=== PATIENT | female | born 1955 | race Caucasian/White ===

== ENCOUNTER 2017-10-07 17:51 | Observation (INO) | payer OTHER ==
[~2017-10-07] VITALS: Ht 167.6 cm; Wt 90.0 kg
[2017-10-07 17:57] VITALS: BP_SYST 110; BP_SYST 123; BP_DIAS 62; BP_DIAS 67; PULSE 88; PULSE 92; RESP 18; TEMP 97.8; O2SAT 100
[2017-10-07] MEDS ORDERED: SODIUM CHLORIDE 0.9% FLUSH 10 ML FLUSH IVF PRN (18:45)
--- NOTE | 2017-10-07 18:52 | RADRPT ---
EXAM DATE: 10/07/2017 6:50 PM EDT AGE/SEX: 62 years / Female INDICATIONS: Short of breath. CLINICAL DATA: This is the patient's initial encounter. Patient reports that signs and symptoms have been present for 1 day and indicates a pain score of 0/10. MEDICAL/SURGICAL HISTORY: None. None. COMPARISON: No prior exams available for comparison. FINDINGS: A single AP view of the chest demonstrates the lungs to be symmetrically aerated without evidence of mass, infiltrate or effusion. The cardiomediastinal contours are unremarkable. Osseous structures a re intact. CONCLUSION: 1. No acute cardiopulmonary disease. Electronically signed by: Juanjo Mak MD 10/07/2017 6:51 PM EDT
--- NOTE | 2017-10-07 18:53 | PD ---
HPI Chief Complaint: Respiratory Symptoms Time Seen by Provider: 18:22 Travel History International Travel<30 days: No Contact w/Intl Traveler<30days: No Traveled to known affect area: No History of Present Illness HPI Patient is a 62-year-old female presenting to the emergency department for evaluation of shortness of breath. Patient states it started last year in June 2016. She has had a total of 3 heart catheterizations the most recent being last Friday. Patient states that she has no tolerance for any activity. She had a negative pulmonary function test a few months ago. Patient thought that her symptoms may be due to being on Plavix however she was switched to Brilinta 2 weeks ago and she continues to have the symptoms. Patient's past medical history includes seizure disorder, coronary artery disease, hypertension , type 2 diabetes, hyperlipidemia, hormone replacement, depression. 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 She was seen at [facility] last week where she had the workup performed. Her significant other suggested that they come to [place] because they have not been able to get the answers they were looking for. PFSH Past Medical History Depression: Yes High Cholesterol: Yes Chest Pain: Yes Coronary Artery Disease: Yes Diabetes: Yes Medical other: Yes (Hormone replacement) Seizures: Yes Social History Alcohol Use: No Tobacco Use: No Substance Use: No Allergies-Medications (Allergen,Severity, Reaction): Coded Allergies: No Known Allergies (Unverified , 10/07/17) Review of Systems Except as stated in HPI: all other systems reviewed are Neg General / Constitutional: No: Fever HENT: No: Headaches Cardiovascular: Positive: Chest Pain or Discomfort (Occasionally), Dyspnea on exertion Respiratory: Positive: Shortness of Breath Gastrointestinal: No: Nausea, Abdominal Pain Musculoskeletal: No: Myalgias Neurologic: No: Weakness, Dizziness, Syncope Physical Exam Narrative GENERAL: Well-developed, well-nourished, alert female. Presenting in no acute distress. SKIN: Warm and dry. HEAD: Atraumatic. Normocephalic. EYES: Pupils equal and round. No scleral icterus. No injection or drainage. ENT: No nasal bleeding or discharge. Mucous membranes pink and moist. NECK: Trachea midline. No JVD. CARDIOVASCULAR: Regular rate and rhythm. RESPIRATORY: No accessory muscle use. Clear to auscultation. Breath sounds equal bilaterally. GASTROINTESTINAL: Abdomen soft, non-tender, nondistended. Hepatic and splenic margins not palpable. MUSCULOSKELETAL: Extremities without clubbing, cyanosis, or edema. No obvious deformities. NEUROLOGICAL: Awake and alert. No obvious cranial nerve deficits. Motor grossly within normal limits. Five out of 5 muscle strength in the arms and legs. Normal speech. PSYCHIATRIC: Appropriate mood and affect; insight and judgment normal. Data Data Last Documented VS Vital Signs Date Time Temp Pulse Resp B/P (MAP) Pulse Ox O2 Delivery O2 Flow Rate FiO2 10/07/17 21:26 98 10/07/17 19:53 Room Air 10/07/17 19:53 75 18 133/79 (97) 10/07/17 17:57 97.8 Orders Orders Electrocardiogram (10/07/17 18:04) Comprehensive Metabolic Panel (10/07/17 18:37) B-Type Natriuretic Peptide (10/07/17 18:37) Act Partial Throm Time (Ptt) (10/07/17 18:37) Prothrombin Time / Inr (Pt) (10/07/17 18:37) Magnesium (Mg) (10/07/17 18:37) Ckmb (Isoenzyme) Profile (10/07/17 18:37) Troponin I (10/07/17 18:37) Iv Access Insert/Monitor (10/07/17 18:37) Ecg Monitoring (10/07/17 18:37) Oximetry (10/07/17 18:37) Oxygen Administration (10/07/17 18:37) Chest, Single Ap (10/07/17 18:37) Sodium Chloride 0.9% Flush (Ns Flush) (10/07/17 18:45) Complete Blood Count With Diff (10/07/17 18:37) Activity Bed Rest With Brp (10/07/17 21:23) Vital Signs (Adult) Q4H (10/07/17 21:23) Cardiac Rhythm .As Directed (10/07/17:23) Notify Dr: Other .PRN (10/07/17 21:23) Notify DrIrvin Parameters (10/07/17 21:23) Resp Oxygen Nasal Cannula (10/07/17 ) Diet Npo (10/08/17 Breakfast) Ckmb (Isoenzyme) Profile (10/07/17 21:23) Ckmb (Isoenzyme) Profile (10/08/17 00:23) Troponin I (10/07/17 21:23) Troponin I (10/08/17 00:23) Electrocardiogram (10/07/17 21:23) Electrocardiogram (10/08/17 00:23) ^ Obtain (10/07/17:23) Sodium Chloride 0.9% Flush (Ns Flush) (10/07/17 21:30) Sodium Chloride 0.9% Flush (Ns Flush) (10/08/17 09:00) Acetaminophen (Tylenol) (10/07/17 21:30) Pantoprazole (Protonix) (10/08/17 09:00) Nitroglycerin Sl (Nitrostat Sl) (10/07/17 21:30) Temazepam (Restoril) (10/07/17 21:30) Oncology Specialist / Telemetry [id number].[id number] (10/07/17 21:23) Admit Order (Ed Use Only) (10/07/17 21:23) Labs Laboratory Tests Test 10/07/17 20:05 White Blood Count 14.4 TH/MM3 Red Blood Count 3.47 MIL/MM3 Hemoglobin 10.7 GM/DL Hematocrit 32.1 % Mean Corpuscular Volume 92.3 FL Mean Corpuscular Hemoglobin 30.9 PG Mean Corpuscular Hemoglobin Concent 33.5 % Red Cell Distribution Width 13.4 % Platelet Count 327 TH/MM3 Mean Platelet Volume 8.0 FL Neutrophils (%) (Auto) 81.6 % Lymphocytes (%) (Auto) 10.5 % Monocytes (%) (Auto) 6.4 % Eosinophils (%) (Auto) 1.1 % Basophils (%) (Auto) 0.4 % Neutrophils # (Auto) 11.8 TH/MM3 Lymphocytes # (Auto) 1.5 TH/MM3 Monocytes # (Auto) 0.9 TH/MM3 Eosinophils # (Auto) 0.2 TH/MM3 Basophils # (Auto) 0.1 TH/MM3 CBC Comment AUTO DIFF Differential Total Cells Counted 100 Neutrophils % (Manual) 80 % Band Neutrophils % 3 % Lymphocytes % 8 % Monocytes % 4 % Eosinophils % 3 % Neutrophils # (Manual) 12.2 TH/MM3 Metamyelocytes 1 % Promyelocytes 1 % Differential Comment FINAL DIFF MANUAL Platelet Estimate NORMAL Platelet Morphology Comment NORMAL Prothrombin Time 10.1 SEC Prothromb Time International Ratio 1.0 RATIO Activated Partial Thromboplast Time 25.7 SEC Blood Urea Nitrogen 20 MG/DL Creatinine 1.10 MG/DL Random Glucose 142 MG/DL Total Protein 7.6 GM/DL Albumin 3.8 GM/DL Calcium Level 9.1 MG/DL Magnesium Level 1.8 MG/DL Alkaline Phosphatase 57 U/L Aspartate Amino Transf (AST/SGOT) 9 U/L Alanine Aminotransferase (ALT/SGPT) 16 U/L Total Bilirubin 0.1 MG/DL Sodium Level 137 MEQ/L Potassium Level 4.3 MEQ/L Chloride Level 104 MEQ/L Carbon Dioxide Level 23.7 MEQ/L Anion Gap 9 MEQ/L Estimat Glomerular Filtration Rate 50 ML/MIN Total Creatine Kinase 26 U/L Troponin I LESS THAN 0.02 NG/ML B-Type Natriuretic Peptide 5 PG/ML MDM Medical Decision Making Medical Screen Exam Complete: Yes Emergency Medical Condition: Yes Interpretation(s) Vital Signs Date Time Temp Pulse Resp B/P (MAP) Pulse Ox O2 Delivery O2 Flow Rate FiO2 10/07/17 17:57 97.8 92 18 123/67 (85) 100 Differential Diagnosis ACS versus [place] versus pulmonary embolism versus pulmonary fibrosis versus asthma versus medication side effect versus other Narrative Course Patient is a 62-year-old female that presented to the emergency department for evaluation of shortness of breath and chest pain. Patient has history of coronary artery disease status post stent placement. Medical records obtained. She recently underwent a cardiac cath at [facility] on October 02, 2017. Per medical records for the heart catheterization the proximal LAD has 50% disease followed by dual LAD system with the superior branch has proximal 50% disease. Inferior branches patent stent site. Proximal OM 1 which is a bridge of branch has 50% disease. There is a 50% in-stent restenosis of the mid RCA. Normal pulmonary artery pressures. Patient was to pursue conservative medical management. During that admission patient also had a negative CT pulmonary angiogram. Additionally on review of her labs she had an elevated white blood cell count at 17.5 immature granulocytes 0.5. Patient CBC today with a white blood cell count of 14.4 with left shift. Promyelocytes 1. Chemistries unremarkable BN P is unremarkable, chest x-ray shows no acute disease. At this time due to patient's cardiac history she will be placed in the chest pain center for observation. Discussed plan of care with patient and her . Patient states that she knows there is nothing wrong with her heart. Discussed the abnormal findings regarding the leukocytosis. Patient states to me now she has an appointment with a salesforce consultant next week. Patient and decided to leave AMA AMA: The risks of leaving against medical advice without further evaluation treatment were discussed with the patient. These risks include cardiac dysfunction, cardiac dysrhythmia, possible heart attack, possible stroke or . The patient indicated understanding of these risks and appeared to have the capacity to make this decision. Diagnosis Primary Impression: Left against medical advice Cande Stallings Oct 07, 2017 18:53
[2017-10-07 19:53] VITALS: BP 133/79; PULSE 75; RESP 18; O2SAT 98
[2017-10-07 20:32] LABS: AUTOMATED NEUTROPHIL # 11.8 TH/MM3 (1.8-7.7); BASOPHIL # 0.1 TH/MM3 (0-0.2); BASOPHIL % 0.4 % (0.0-2.0); EOSINOPHIL # 0.2 TH/MM3 (0-0.4); EOSINOPHIL % 1.1 % (0.0-4.0); HEMATOCRIT 32.1 % (35.0-46.0); HEMOGLOBIN 10.7 GM/DL (11.6-15.3); LYMPH % 10.5 % (9.0-44.0); LYMPHOCYTE # 1.5 TH/MM3 (1.0-4.8); MEAN CELL VOLUME 92.3 FL (80.0-100.0); MEAN CORPUSCULAR HEMOGLOBIN 30.9 PG (27.0-34.0); MEAN CORPUSCULAR HGB CONC 33.5 % (32.0-36.0); MONO % 6.4 % (0.0-8.0); MONOCYTE # 0.9 TH/MM3 (0-0.9); NEUT % 81.6 % (16.0-70.0); PLATELET COUNT 327 TH/MM3 (150-450); RED BLOOD COUNT 3.47 MIL/MM3 (4.00-5.30); RED CELL DISTRIBUTION WIDTH 13.4 % (11.6-17.2); WHITE BLOOD COUNT 14.4 TH/MM3 (4.0-11.0)
[2017-10-07 20:44] LABS: PROTHROMBIN TIME - PATIENT 10.1 SEC (9.8-11.6)
[2017-10-07 20:54] LABS: ALBUMIN 3.8 GM/DL (3.4-5.0); AST (GOT) 9 U/L (15-37); BICARBONATE 23.7 MEQ/L (21.0-32.0); BLOOD UREA NITROGEN 20 MG/DL (7-18); CALCIUM 9.1 MG/DL (8.5-10.1); CHLORIDE 104 MEQ/L (98-107); GLOMERULAR FILTRATION RATE 50 ML/MIN (>89); GLUCOSE,RANDOM 142 MG/DL (74-106); MAGNESIUM 1.8 MG/DL (1.5-2.5); SODIUM (NA) 137 MEQ/L (136-145)
[2017-10-07 20:55] LABS: ALT (GPT) 16 U/L (10-53)
[2017-10-07 21:00] LABS: ALKALINE PHOSPHATASE 57 U/L (45-117); TOTAL BILIRUBIN ADULT 0.1 MG/DL (0.2-1.0); TOTAL PROTEIN 7.6 GM/DL (6.4-8.2); TROPONIN I LESS THAN 0.02 NG/ML (0.02-0.05)
[2017-10-07 21:02] LABS: BANDS 3 % (0-6); LYMPHOCYTES 8 % (9-44); METAMYELOCYTES 1 % (0-1); MONOCYTES 4 % (0-8); NEUTROPHIL # MANUAL DIFF 12.2 TH/MM3 (1.8-7.7); POLYS (SEG NEUTROPHILS) 80 % (16-70); PROMYELOCYTES 1 % (0-0)
[2017-10-07 21:26] VITALS: O2SAT 98
[2017-10-07] MEDS ORDERED: ACETAMINOPHEN 500 MG CPLT PO PRN (21:30)
[2017-10-07] MEDS ORDERED: NITROGLYCERIN 0.4 MG SL 25 TABS/BTL SL PRN (21:30)
[2017-10-07] MEDS ORDERED: SODIUM CHLORIDE 0.9% FLUSH 10 ML FLUSH IV FLUSH PRN (21:30)
[2017-10-07] MEDS ORDERED: TEMAZEPAM 15 MG CAP PO PRN (21:30)
[2017-10-08] MEDS ORDERED: SODIUM CHLORIDE 0.9% FLUSH 10 ML FLUSH IV FLUSH SCH (09:00)
[2017-10-08] MEDS ORDERED: PANTOPRAZOLE SOD 40 MG DELAYED RELEASE TAB PO SCH (09:00)
--- NOTE | 2017-10-09 17:43 | EKG ---
Date Performed: 10/07/2017 Time Performed: 18:11:30 PTAGE: 62 years EKG: Sinus rhythm SEPTAL MYOCARDIAL INFARCTION ABNORMAL ECG NO PREVIOUS TRACING DOCTOR: Yanique Lawrence Interpretating Date/Time 10/09/2017 17:41:12
== END 2017-10-07 21:50 | disposition home or self-care (01) ==
LOC: NEPE 17:51 → NEDA 21:26
PROVIDERS: ADMIT Internal Medicine Interventional Cardiology; ATTEND Internal Medicine Interventional Cardiology
DX: R06.02 Shortness of breath (principal); Z79.890 Hormone replacement therapy; I25.10 Atherosclerotic heart disease of native coronary artery without angina pectoris; I10 Essential (primary) hypertension; G40.909 Epilepsy, unspecified, not intractable, without status epilepticus; E78.5 Hyperlipidemia, unspecified; E11.9 Type 2 diabetes mellitus without complications; F32.9 Major depressive disorder, single episode, unspecified; Z79.01 Long term (current) use of anticoagulants; E78.00 Pure hypercholesterolemia, unspecified; R07.9 Chest pain, unspecified; T82.855A Stenosis of coronary artery stent, initial encounter; D72.829 Elevated white blood cell count, unspecified; R94.31 Abnormal electrocardiogram [ECG] [EKG]
CPT/HCPCS: 71045; 80053; 82550; 83735; 83880; 84484; 85007; 85027; 85610; 85730; 93005